=== PATIENT | female | born 1965 | race Caucasian/White ===

== ENCOUNTER 2017-05-24 05:35 | Inpatient (IN) | payer OTHER ==
[2017-05-18 14:38] LABS: BASOPHILS % (AUTO) 0.5 % (0.0-2.0); EOSINOPHILS % (AUTO) 2.7 % (1.0-6.0); HEMATOCRIT 38.4 % (36-46); HEMOGLOBIN 12.8 g/dL (12.0-16.0); LYMPHOCYTES # (AUTO) 2.4 K/uL (1.0-4.8); LYMPHOCYTES % (AUTO) 41.4 % (22.0-44.0); MEAN CORPUSCULAR HEMOGLOBIN 28.9 pg (26.0-34.0); MEAN CORPUSCULAR HGB CONC 33.4 G/dL (31.0-37.0); MEAN CORPUSCULAR VOLUME 87 fL (80-100); MONOCYTES # (AUTO) 0.4 K/uL (0.1-1.0); MONOCYTES % (AUTO) 7.1 % (2.0-9.0); NEUTROPHILS # (AUTO) 2.8 K/uL (1.8-7.7); NEUTROPHILS % (AUTO) 48.3 % (40.0-70.0); PLATELET COUNT (AUTO) 163 K/uL (150-450); RED BLOOD CELL COUNT(AUTO) 4.43 MIL/uL (4.00-5.20); RED CELL DISTRIBUTION WIDTH 13.2 % (11.5-14.5)
[2017-05-18 14:41] LABS: ANION GAP 12 mmol/L (8-16); CALCIUM, TOTAL 9.4 mg/dL (8.8-10.5); CARBON DIOXIDE 26 mmol/L (22-29); CHLORIDE 103 mmol/L (98-107); CREATININE 0.69 mg/dL (0.60-1.30); GLOMERULAR FILTR. RATE CALC > 60 mL/min (>60); GLUCOSE,RANDOM 105 mg/dL (70-110); SODIUM SERUM 141 mmol/L (136-145); UREA NITROGEN, BLOOD 13 mg/dL (7-18)
[2017-05-18 14:46] LABS: INR 0.9 (0.9-1.1); PROTHROMBIN TIME 9.3 SEC (9.4-11.6)
[2017-05-18 14:47] LABS: ALANINE AMINOTRANSFERASE 31 U/L (12-78); ALBUMIN 3.5 g/dL (3.4-5.0); ALKALINE PHOSPHATASE 81 U/L (46-116); ASPARTATE AMINOTRANSFERASE 16 U/L (15-37); BILIRUBIN,TOTAL 0.4 mg/dL (0.1-1.0); TOTAL PROTEIN, SERUM 7.3 g/dL (6.4-8.2)
[~2017-05-24] VITALS: Ht 157.5 cm; Wt 75.0 kg
[~2017-05-24 05:35] MED LIST: CeFAZolin 2 GM/DEXTROSE 50 ML IV ONE; PERCT10 PO; RINGERS SOLUTION,LACTATED 1,000 ML IV ONE
[2017-05-24] MEDS ORDERED: RINGERS SOLUTION,LACTATED 1,000 ML IV ONE ×2 (06:00→09:05)
[2017-05-24] MEDS ORDERED: CeFAZolin 2 GM/DEXTROSE 50 ML IV ONE (06:00)
[2017-05-24] MEDS ORDERED: BUPIVACAINE LIPOSOME/PF 1.3%-13.3MG/ML SUSPENSION 20 ML VIAL INJ ONE (06:45)
[2017-05-24] MEDS ORDERED: DIAZEPAM 5 MG TABLET PO PRN (07:15)
[2017-05-24] MEDS ORDERED: MEPERIDINE-PF 25 MG/ML SYRINGE IVP PRN (07:15)
[2017-05-24] MEDS ORDERED: BUPIVACAINE HCL/PF 0.25% 30 ML VIAL ONE (07:50)
[2017-05-24] MEDS ORDERED: OXYGEN THERAPY IH SCH (08:00)
[2017-05-24] MEDS ORDERED: BENZOCAINE/MENTHOL LOZENGE [8 LOZENGES/PACKET] PO PRN (08:45)
[2017-05-24] MEDS ORDERED: MAG HYDROX/AL HYDROX/SIMETH 30 ML SUSP UDCUP PO PRN (08:45)
[2017-05-24] MEDS ORDERED: DiphenhydrAMINE HCL 50 MG/ML VIAL IVP PRN (08:45)
[2017-05-24] MEDS ORDERED: ZOLPIDEM TARTRATE 10 MG TABLET PO PRN (08:45)
[2017-05-24] MEDS ORDERED: FentaNYL CITRATE-PF 100 MCG/2 ML VIAL ONE (09:19)
[2017-05-24] MEDS ORDERED: MEPERIDINE-PF 25 MG/ML SYRINGE ONE (09:19)
[2017-05-24] MEDS: FentaNYL CITRATE-PF 100 MCG/2 ML VIAL IVP PRN ×2 (09:22→09:45)
[2017-05-24] MEDS: HYDROmorphone 2 MG/ML SYRINGE IVP PRN ×6 (09:24→20:12)
[2017-05-24] MEDS ORDERED: ACETAMINOPHEN 1000 MG/ISO-OSM 100 ML IV ONE (09:27)
[2017-05-24] MEDS: ACETAMINOPHEN 1000 MG/ISO-OSM 100 ML IV SCH ×2 (09:30→09:38)
[2017-05-24] MEDS ORDERED: HYDROmorphone 2 MG/ML SYRINGE ONE (09:52)
[2017-05-24] MEDS ORDERED: DiphenhydrAMINE HCL 50 MG/ML VIAL ONE (09:52)
[2017-05-24 10:42] VITALS: BP 119/69
[2017-05-24] MEDS: CYCLOBENZAPRINE HCL 10 MG TABLET PO SCH ×2 (10:45→20:06)
[2017-05-24] MEDS: DOCUSATE SODIUM 100 MG CAPSULE PO SCH ×2 (10:45→20:05)
[2017-05-24 11:32] VITALS: BP 116/68
[2017-05-24] MEDS ORDERED: KETAMINE HCL 50 MG/ML 10 ML VIAL IVP ONE (12:00)
[2017-05-24] MEDS ORDERED: ONDANSETRON HCL 4 MG/2 ML VIAL IVP ONE (12:00)
[2017-05-24] MEDS ORDERED: SUCCINYLCHOLINE CHLORIDE 20 MG/ML 10 ML VIAL IVP ONE (12:00)
[2017-05-24] MEDS ORDERED: NEOSTIGMINE METHYLSULFATE 1 MG/ML 10 ML VIAL IVP ONE (12:00)
[2017-05-24] MEDS ORDERED: GLYCOPYRROLATE 0.2 MG/ML VIAL IM ONE (12:00)
[2017-05-24] MEDS ORDERED: PROPOFOL 1% 20 ML VIAL IVP ONE (12:00)
[2017-05-24] MEDS ORDERED: DEXAMETHASONE SOD PHOS 4 MG/ML VIAL IVP ONE (12:00)
[2017-05-24] MEDS ORDERED: PROPOFOL 1% ISO-OSM 1000 MG/100 ML BOTTLE IV ONE (12:00)
[2017-05-24] MEDS ORDERED: MIDAZOLAM HCL 2 MG/2 ML VIAL IVP ONE (12:00)
[2017-05-24] MEDS ORDERED: LIDOCAINE HCL/PF 2% 5 ML VIAL INJ ONE (12:00)
[2017-05-24] MEDS ORDERED: ROCURONIUM BROMIDE 10 MG/ML 5 ML VIAL IVP ONE (12:00)
[2017-05-24] MEDS ORDERED: FentaNYL CITRATE-PF 100 MCG/2 ML VIAL IVP ONE (12:00)
[2017-05-24] MEDS ORDERED: METOCLOPRAMIDE HCL 5 MG/ML 2 ML VIAL IVP ONE (12:00)
[2017-05-24 14:25] VITALS: BP 115/64
[2017-05-24 15:57] VITALS: BP 121/76
[2017-05-24 19:48] VITALS: BP 112/65
[2017-05-24] MEDS ORDERED: ZOLPIDEM TARTRATE 5 MG TABLET PO SCH (21:00)
[2017-05-24 23:37] VITALS: BP 123/72
[2017-05-25] MEDS: ACETAMINOPHEN 1000 MG/ISO-OSM 100 ML IV SCH ×2 (00:09→08:32)
[2017-05-25 04:39] VITALS: BP 125/68
[2017-05-25] MEDS: HYDROmorphone 2 MG/ML SYRINGE IVP PRN (06:01)
[2017-05-25 08:12] VITALS: BP 122/82
[2017-05-25] MEDS: DOCUSATE SODIUM 100 MG CAPSULE PO SCH (08:32)
[2017-05-25] MEDS: CYCLOBENZAPRINE HCL 10 MG TABLET PO SCH (08:33)
[2017-05-25] MEDS ORDERED: SODIUM CHLORIDE 0.9% 250 ML IV ONE (08:41)
[2017-05-25 12:13] VITALS: BP 126/75
[2017-05-25] MEDS: OxyCODONE HCL/ACETAMINOPHEN 5-325 MG TABLET PO PRN ×2 (12:38→15:16)
[2017-05-25 15:15] VITALS: BP 128/80
== END 2017-05-25 15:30 | disposition home or self-care (01) | DRG 460 ==
LOC: 4E 05:35
PROVIDERS: ADMIT Orthopaedic Surgery Orthopaedic Surgery of the Spine; ATTEND Orthopaedic Surgery Orthopaedic Surgery of the Spine
PROC: 0SB40ZZ Excision of Lumbosacral Disc, Open Approach (ICD-10-PCS; 2017-05-24)
PROC: 0SG30A0 Fusion of Lumbosacral Joint with Interbody Fusion Device, Anterior Approach, Anterior Column, Open Approach (ICD-10-PCS; principal; 2017-05-24 07:46)
DX: M48.07 Spinal stenosis, lumbosacral region (principal); I10 Essential (primary) hypertension
CPT/HCPCS: 87081; 93005; 97116; 97161; 97165; 97530; 97535; C1713; C9290; J0131; J0330; J0690; J1100; J1170; J1200; J2175; J2250; J2405; J2704; J2765; J3010; J3490; J7050; J7120

== ENCOUNTER 2017-06-06 12:04 | Emergency (ER) | payer MEDICAID, OTHER ==
[~2017-06-06] VITALS: Ht 157.5 cm; Wt 72.0 kg
[~2017-06-06 12:04] MED LIST changes: -CeFAZolin 2 GM/DEXTROSE 50 ML IV ONE; -RINGERS SOLUTION,LACTATED 1,000 ML IV ONE
[2017-06-06] MEDS ORDERED: HYDR-308 PEG (12:07)
[2017-06-06] MEDS ORDERED: HYDR-309 PO (12:08)
[2017-06-06] MEDS ORDERED: MethylPREDNISolone SOD SUCC 125 MG/2 ML VIAL IVP ONE (12:30)
[2017-06-06] MEDS ORDERED: DiphenhydrAMINE HCL 50 MG/ML VIAL IVP ONE (12:30)
[2017-06-06] MEDS ORDERED: SODIUM CHLORIDE 0.9% 1,000 ML IV ONE (12:30)
[2017-06-06] MEDS ORDERED: FAMOTIDINE 10 MG/ML 2 ML VIAL IVP ONE (12:30)
[2017-06-06 14:51] VITALS: BP 132/63
== END 2017-06-06 14:53 | disposition home or self-care (01) ==
LOC: EMS 12:05
DX: T78.49XA Other allergy, initial encounter (principal); R13.10 Dysphagia, unspecified; X58.XXXA Exposure to other specified factors, initial encounter
CPT/HCPCS: 96361; 96374; 96375; 99284; J1200; J2930; J3490

== ENCOUNTER 2022-02-13 12:35 | Emergency (ER) | payer MEDICARE, OTHER ==
[~2022-02-13] VITALS: Ht 157.5 cm; Wt 72.7 kg
[~2022-02-13 12:35] MED LIST changes: +HYDR-309 PO; -PERCT10 PO
[2022-02-13] MEDS ORDERED: MECLIZINE HCL 25 MG TABLET PO ONE (13:30)
[2022-02-13] MEDS ORDERED: ONDANSETRON HCL 4 MG TABLET PO ONE (13:30)
[2022-02-13] MEDS ORDERED: ACETAMINOPHEN 500 MG TABLET PO ONE (13:30)
[2022-02-13] MEDS ORDERED: OxyCODONE HCL 5 MG IR TABLET PO ONE (14:45)
[2022-02-13 17:00] VITALS: BP 135/78
[2022-02-13] MEDS ORDERED: MECL-134 PO (17:13)
== END 2022-02-13 17:15 | disposition home or self-care (01) ==
LOC: EMS 12:37
DX: S06.0X1A Concussion with loss of consciousness of 30 minutes or less, initial encounter (principal); Z98.890 Other specified postprocedural states; W01.0XXA Fall on same level from slipping, tripping and stumbling without subsequent striking against object, initial encounter; Y93.E5 Activity, floor mopping and cleaning; Y92.89 Other specified places as the place of occurrence of the external cause; Y99.8 Other external cause status
CPT/HCPCS: 99284; 70551; 70450; 72125; Q0162

== ENCOUNTER 2023-07-26 14:36 | Emergency (ER) | payer MEDICARE, OTHER ==
[~2023-07-26] VITALS: Ht 157.5 cm; Wt 77.3 kg
[~2023-07-26 14:36] MED LIST changes: -HYDR-309 PO; +MECL-134 PO
[2023-07-26] MEDS: LIDOCAINE 5% TRANSDERMAL PATCH TD ONE (16:03)
[2023-07-26] MEDS: IBUPROFEN 600 MG TABLET PO ONE (16:03)
[2023-07-26] MEDS: BACLOFEN 10 MG TABLET PO ONE (16:03)
[2023-07-26 17:20] LABS: APPEARANCE,URINE CLEAR (CLEAR); BILIRUBIN,URINE NEGATIVE (NEGATIVE); COLOR,URINE YELLOW (YELLOW); GLUCOSE, URINE (UA) NEGATIVE (NEGATIVE); KETONES,URINE NEGATIVE (NEGATIVE); LEUKOCYTE ESTERASE ,URINE LARGE (NEGATIVE); NITRATE,URINE NEGATIVE (NEGATIVE); OCCULT BLOOD,URINE NEGATIVE (NEGATIVE); PH,URINE 5.5 (5.0-8.0); PROTEIN,URINE NEGATIVE (NEGATIVE); SPECIFIC GRAVITIY, URINE 1.026 (1.003-1.030); UROBILINOGEN,URINE <=1.0 mg/dL (<=1.0)
[2023-07-26 17:36] LABS: BACTERIA,URINE Few /HPF (None Seen); RBC,URINE 0-2 /HPF (0-2); SQUAMOUS EPITHELIAL CELL,UR Moderate /LPF (None Seen)
[2023-07-26] MEDS ORDERED: CEPH-558 PO (17:45)
[2023-07-26] MEDS ORDERED: LIDO700A15 TP (17:46)
[2023-07-26] MEDS ORDERED: BACL10TA PO (17:46)
[2023-07-26] MEDS ORDERED: IBUP-1492 PO (17:47)
[2023-07-26 17:58] VITALS: BP 142/72; PULSE 66; RESP 18; TEMP 98
== END 2023-07-26 18:24 | disposition home or self-care (01) ==
LOC: EMS 14:42
DX: N39.0 Urinary tract infection, site not specified (principal); M54.50 Low back pain, unspecified
CPT/HCPCS: 72100; 81001; 87086; 87186; 99284; Z7502; Z7610

== ENCOUNTER 2024-05-06 11:22 | Emergency (ER) | payer MEDICARE, OTHER ==
[~2024-05-06] VITALS: Ht 157.5 cm; Wt 78.2 kg
[~2024-05-06 11:22] MED LIST changes: +BACL10TA PO; +CEPH-558 PO; +IBUP-1492 PO; +LIDO700A15 TP; -MECL-134 PO
[2024-05-06 11:28] VITALS: BP 147/88; PULSE 96; RESP 20; TEMP 97.9; O2SAT 99
[2024-05-06] MEDS: IBUPROFEN 400 MG TABLET PO ONE (12:14)
[2024-05-06] MEDS: HYDROCODONE/ACETAMINOPHEN 5-325 MG TABLET PO ONE (12:14)
== END 2024-05-06 13:00 | disposition home or self-care (01) ==
LOC: EMS 11:24
DX: S62.615A Displaced fracture of proximal phalanx of left ring finger, initial encounter for closed fracture (principal); S62.617A Displaced fracture of proximal phalanx of left little finger, initial encounter for closed fracture; I10 Essential (primary) hypertension; W18.39XA Other fall on same level, initial encounter; Y93.89 Activity, other specified; Y92.89 Other specified places as the place of occurrence of the external cause; Y99.8 Other external cause status
CPT/HCPCS: 99283; 99284